=== PATIENT | male | born 1995 | race Caucasian/White ===

== ENCOUNTER 2019-01-18 05:45 | Emergency (ER) | payer OTHER ==
[~2019-01-18] VITALS: Ht 182.9 cm; Wt 145.0 kg
[2019-01-18 05:48] VITALS: BP 133/80; PULSE 110; RESP 16; Ht 182.9 cm; Wt 145.0 kg
--- NOTE | 2019-01-18 06:34 | ERD ---
ER Documentation Chief Complaint Chief Complaint Pt reports he swallowed a pill, had acid reflux and feels the pill is stuck HPI Patient is a 23-year-old male with PMHx of GERD who presents the ER for concerns of a foreign body sensation in his right neck x 12 hours. Patient states around 3 PM yesterday, he ate "[id number]-Box" (refuses to say actual food) and took Aleve. Patient states that that time since that time he feels as if there is something stuck in his neck. Patient is currently holding the right side of his neck and states that he is holding onto the object stuck in his throat. Patient states he "can feel something moving." Patient states when he "coughs, sneeze, swallows," the object moves." Patient states when "I let go of it," "I cannot breathe." Patient states "its blocking my airway." Patient is speaking in full sentences. Patient has no drooling, trismus or hyperextension of his neck. Patient has no cough, chest pain, diaphoresis, fevers, or chills. ROS All systems reviewed and are negative except as per history of present illness. Medications Home Meds Active Scripts Benzocaine/Menthol* (Cepacol* Sore Throat Lozenges) 1 Each Lozenge, 1 EACH MM q2h PRN for SORE THROAT, #20 LOZ[place]GE Prov:KATHERINE YOU PA-C 01/18/19 Allergies Allergies: Coded Allergies: No Known Allergy (Unverified , 01/18/19) PMhx/Soc Medical and Surgical Hx: pt denies Medical Hx, pt denies Surgical Hx Hx Alcohol Use: Yes Hx Substance Use: Yes (Marijuana, Cocaine, Ecstacy) Hx Tobacco Use: Yes Smoking Status: Current every day smoker FmHx Family History: No diabetes Physical Exam Vitals Vital Signs Date Temp Pulse Resp B/P (MAP) Pulse Ox O2 O2 Flow FiO2 Time Delivery Rate 01/18/19 97.9 110 16 133/80 98 05:48 (97) Physical Exam GENERAL: Obese male. Appears in no acute distress. Patient is speaking in full sentences. Patient is holding onto his right side of his neck. When patient stops holding his neck unknowingly while conversing, he continues to speak in full sentences and has no signs of respiratory distress. HEAD: Normocephalic, atraumatic. EYES: Pupils are equally reactive bilaterally. EOMs grossly intact. No conjunctival erythema. ENT: Moist mucous membranes. Oropharynx is open. No tonsillar swelling or exudates noted. No uvula deviation. No kissing tonsils. No drooling. No trismus. NECK: Supple. No meningismus. Normal range of motion of the neck. No obvious palpable objects noted in the right side of neck. LUNG: No stridor. Clear to auscultation bilaterally. No rhonchi, wheezing, rales or coarse breath sounds. HEART: Regular rate and rhythm. No murmurs, rubs or gallops. EXTREMITIES: Equal pulses bilaterally. No peripheral clubbing, cyanosis or edema. No unilateral leg swelling. NEUROLOGIC: Alert and oriented. Moving all four extremities without any difficu lty. Normal speech. Steady gait. SKIN: Normal color. Warm and dry. No rashes or lesions. Procedures/MDM ED COURSE: The patient was stable throughout ED course. I kept the patient and/or family informed of laboratory and diagnostic imaging results throughout the ED course. DIAGNOSTIC IMAGING: Read by radiologist. DIAGNOSTIC IMAGING REPORT Patient: KIRILL GONZALEZ : 1995 Age: 23 Sex: M MR #: [id number] DOS: 01/18/19628 Ordering MD: KATHERINE YOU PA-C Location: [facility] Room/Bed: PROCEDURE: CT soft tissue neck without contrast. CLINICAL INDICATION: Foreign body sensation TECHNIQUE: The study was performed utilizing a GE 64-slice multidetector CT scanner. Direct thin section helically acquired axial sections were obtained through the neck without contrast. Coronal and sagittal reformations were obtained. The images were reviewed on a PACS workstation. The total CTDIvol is 11.32 mGy and the DLP is 286.50 mGy-cm. DICOM images are available for review. One the three dose reduction techniques were used during the CT examination: 1) Automated exposure control 2) Adjustment of the mA +/or kV according to patient's size 3) Use of iterative reconstruction technique COMPARISON: None available FINDINGS: The nasopharynx demonstrates prominent nasopharyngeal adenoidal tissue which may be normal for age which contributes to moderate nasopharyngeal airway narrowing. The oropharynx and the oral cavity are normal. Punctate calcification is noted in the right tonsil compatible with prior infection or inflammation. The bilateral intrinsic muscles of the tongue are normal. The oral pharyngeal airway is patent. The epiglottis is normal. The hypopharynx, supra glottis and glottis are normal. The subglottic mucosa is normal. The imaged portions of the bilateral thyroid lobes are normal and the lung apices are clear. The bilateral sublingual glands, submandibular glands and parotid glands are normal. Several small sub centimeter bilateral level I and level II lymph nodes are present No pathologically enlarged lymph nodes are detected. No osteolytic or blastic lesion is evident. The imaged portions of the cervical spine are normal with mild straightening of the normal cervical lordosis. IMPRESSION: 1. No evidence for radiodense foreign body. 2. No evidence for acute inflammation or masses on this limited noncontrast CT neck. 3. Moderate nasopharyngeal adenoidal tissue with moderate nasopharyngeal airway narrowing and patent oropharynx. Consider ENT consultation and follow-up. 4. Nonpathologic bilateral level I level II lymphadenopathy. RPTAT: HDC .Belen العراقي MD, MD Date Time Electronically viewed and signed by .Belen العراقي MD, MD on 01/18/2019 07:24 .C/ CC: KATHERINE YOU PA-C [phone] MEDICAL DECISION MAKING: Patient is a 23-year-old male with past medical history of GERD who presents the ER for concerns of a foreign body sensation. Patient stated that he felt something moving in the right side of his neck and patient was observed holding the right side of his neck. Patient states that he was holding onto the object. Patient states object was moving around with positional changes coughing or sneezing. Patient also states when he let go of the object he felt as if he could not breathe. Vital signs were reviewed. Patient is afebrile. Patient was not hypoxic. Patient was hemodynamically stable. Patient was speaking in full sentences. Patient had no signs of acute respiratory distress. Patient had no drooling. No coughing. No vomiting. I explained to the patient that length that he did not have any signs of acute respiratory distress or airway compromise. I discussed anatomical positioning of the airway. Patient continued to argue and stated that he wished to have imaging studies done. Imaging studies were completed. See formal report above. Despite negative imaging studies, patient continued to argue and state that he felt something moving the right side of his neck. Myself as well as the charge nurse explained to the patient at length there are no emergent processes occu rring at this time. It is likely that patient may be feeling his lymph nodes. I explained to the patient has lymph nodes are normal in size as discussed on CT report. Patient stated he did not feel that his symptoms are related to his complaints. Patient was also offered a GI cocktail for concerns of pill esophagitis however patient declined GI cocktail. Patient was advised to follow-up with an ENT specialist. Low suspicion for airway compromise, respiratory distress, respiratory failure, peritonsillar abscess, deep space infection, eosphageal perforation, and other emergencies. Discussed case and CT imaging results with supervising physician Dr. Chaves who agreed that ptient is stable for outpatient management. DISCHARGE: At this time, patient is stable for discharge and outpatient management. I have instructed the patient to follow-up with his/her primary care physician in 1-2 days. I have discussed with the patient the possibility of needing to see a specialist for further workup and imaging studies if symptoms persist. I have instructed the patient to promptly return to the ER for any new or worsening symptoms including increased pain, fever, nausea, vomiting, weakness or LOC. The patient and/or family expressed understanding of and agreement with this plan. All questions were answered. Home care instructions were provided. Disclaimer: Inadvertent spelling and grammatical errors are likely due to EHR/dictation software use and do not reflect on the overall quality of patient care. Also, please note that the electronic time recorded on this note does not necessarily reflect the actual time of the patient encounter. Departure Diagnosis: Primary Impression: Sensation of foreign body in throat Additional Impression: Lymphadenopathy Condition: Fair Patient Instructions: Swallowed Foreign Body (Adult) Referrals: [facility] YOU HAVE RECEIVED A MEDICAL SCREENING EXAM AND THE RESULTS INDICATE THAT YOU DO NOT HAVE A CONDITION THAT REQUIRES URGENT TREATMENT IN THE EMERGENCY DEPARTMENT. FURTHER EVALUATION AND TREATMENT OF YOUR CONDITION CAN WAIT UNTIL YOU ARE SEEN IN YOUR DOCTORS OFFICE WITHIN THE NEXT 1-2 DAYS. IT IS YOUR RESPONSIBILITY TO MAKE AN APPOINTMENT FOR FOLOW-UP CARE. IF YOU HAVE A PRIMARY DOCTOR --you should call your primary doctor and schedule an appointment IF YOU DO NOT HAVE A PRIMARY DOCTOR YOU CAN CALL OUR PHYSICIAN REFERRAL HOTLINE AT IF YOU CAN NOT AFFORD TO SEE A PHYSICIAN YOU CAN CHOSE FROM THE FOLLOWING [facility] [address] [facility] [address] [facility] [address] [facility] [address] [facility]. [facility] [address] [facility] [facility] [address] [facility] [facility] YOU HAVE RECEIVED A MEDICAL SCREENING EXAM AND THE RESULTS INDICATE THAT YOU DO NOT HAVE A CONDITION THAT REQUIRES URGENT TREATMENT IN THE EMERGENCY DEPARTMENT. FURTHER EVALUATION AND TREATMENT OF YOUR CONDITION CAN WAIT UNTIL YOU ARE SEEN IN YOUR DOCTORS OFFICE WITHIN THE NEXT 1-2 DAYS. IT IS YOUR RESPONSIBILITY TO MAKE AN APPOINTMENT FOR FOLOW-UP CARE. IF YOU HAVE A PRIMARY DOCTOR --you should call your primary doctor and schedule and appointment IF YOU DO NOT HAVE A PRIMARY DOCTOR YOU CAN CALL OUR PHYSICIAN REFERRAL HOTLINE AT . IF YOU CAN NOT AFFORD TO SEE A PHYSICIAN YOU CAN CHOSE FROM THE FOLLOWING [facility] INSTITUTIONS: [facility] [address] [place] [address] [facility] [address] [place] [address] [facility] [address] [place] [address] Additional Instructions: Call your primary care doctor TOMORROW for an appointment during the next 1-2 days.See the doctor sooner or return here if your condition worsens before your appointment time. KATHERINE YOU PA-C January 18, 2019 06:34
[2019-01-18] MEDS ORDERED: BENZ1LOZ52 MM (08:07)
== END 2019-01-18 08:20 | disposition home or self-care (01) ==
LOC: FTE 05:45
DX: R59.1 Generalized enlarged lymph nodes (principal); F17.210 Nicotine dependence, cigarettes, uncomplicated
CPT/HCPCS: 70490; Z7502